=== PATIENT | female | born 2000 | race Caucasian/White ===

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

== ENCOUNTER 2022-08-09 08:55 | Day surgery (SDC) | payer OTHER, SELFPAY ==
[2022-08-08 13:43] VITALS: BMI 19.7
[2022-08-09] VITALS (11 sets, daily range): BP systolic 102–134; BP diastolic 31–82; PULSE 65–115; RESP 16–18; TEMP 36.1–37.2; O2SAT 95–100
[2022-08-09] MEDS: CELEcoxib 200 mg Capsule 400 MG PO (09:27)
[2022-08-09] MEDS: gabapentin 300 mg Capsule PO (09:28)
[2022-08-09] MEDS: acetaminophen 1,000 MG/100 ML PIGGYBACK 400 MG IV (09:32)
[2022-08-09] MEDS: sodium chloride 0.9% 1,000 ML 30 ML IV (09:34)
[2022-08-09 09:37] LABS: OR HCG Qualitative Urine Negative (Negative)
--- NOTE | 2022-08-09 10:33 | W.PM.OPSUD ---
Surgery/Procedure H&P Update DATE OF PROCEDURE: August 09, 2022 DATE H&P PERFORMED: 08/05/22 H&P UPDATE INFORMATION: I have reviewed H&P completed within last 30 days, I have examined patient prior to procedure and No changes to prior documentation PREOP DIAGNOSIS: AUB, Dysmenorrhea PLANNED PROCEDURE: Operation Date: 08/09/22 10:35 Proposed Procedures p [Hysteroscopy, dilation and curettage with Myosure [id number]], N93.9(Not Applicable) - Farrah Long MD Related Problem List Diagnoses (1) Abnormal uterine bleeding (AUB): (2) Dysmenorrhea:
[2022-08-09] MEDS: ceFAZolin 2,000 MG in sodium chloride 0.9% (plus) 50 ML 100 MG IV (10:54)
--- NOTE | 2022-08-09 11:44 | P.OP_ITS ---
Operative Report Date of procedure: August 09, 2022 Pre-op diagnosis: Preop Diagnosis AUB, Dysmenorrhea Post-op diagnosis: same Post-op findings: 9 week sized uterus. Procedure done: hysteroscopy, dilation and curettage with myosure Specimens removed/disposition: endometrial curettings to pathology Surgeon: Farrah Long Anesthesia: General Estimated blood loss (mL): 2 IV fluids (mL): 800 Complications: none Findings: hysteroscopy deficit 1120 ml Condition: stable Disposition: PACU Procedure: The patient was taken to the operating room where monitored anesthesia was administered and to be adequate. She was prepped and draped in the normal sterile fashion in the dorsal lithotomy position in [facility]. A weighted speculum was placed into the vagina and the anterior lip of the cervix grasped with a single-tooth tenaculum. The uterus was sounded to 9 cm. The cervix was dilated to 16 [place]. The hysteroscope was advanced into the endometrial cavity. There was excessive tissue on the anterior possible fibroid visualized. The MyoSure device was activated and the tissue was removed. Pictures were taken pre and post procedure. All instruments were removed. The patient tolerated the procedure well. Sponge lap and needle counts were correct x3. She was taken to the recovery room in stable condition.
--- NOTE | 2022-08-09 11:48 | PM.DCS ---
Discharge Providers Date of Admission: 08/09/22 Date of Discharge: August 09, 2022 Attending Provider at Discharge: Farrah Long MD Primary Care Provider: Iman Hull DO Diagnoses at Discharge Discharge Diagnosis (1) Abnormal uterine bleeding (AUB): Status: Acute (2) Dysmenorrhea: Status: Acute Reason for Visit Reason for Visit: N93.9 Hospital Course Hospital Course The patient was admitted for surgery. she did well postoperatively and was ready for discharge Discharge Data Studies Completed and Pending Pending at discharge Category Date Time Status Pathology: Surgical [PTH] Routine Pth 08/09/22 11:42 Ordered Laboratory Results Urine HCG, Qual Negative (Negative) 08/09/22 09:07 Vitals Last Vital Signs Temp 98.9 F 08/09/22 09:15 Pulse 103 H 08/09/22 09:15 Resp 16 08/09/22 09:15 BP 116/82 08/09/22 09:15 Pulse Ox 100 08/09/22 09:15 O2 Del Method Room Air 08/09/22 09:15 Discharge Plan Discharge Patient Disposition: Home Condition: Stable Prescriptions: Continued loratadine [Claritin] 10 mg tablet 10 mg PO DAILY levonorgestrel-ethinyl estrad [Aviane] 0.1-20 mg-mcg tablet 1 tab PO DAILY Qty: 28 12RF Discharge Orders: Discharge Order (Routine); Ordered 08/09/22 Ordered By: Farrah Long Discharge Attestations Time Spent in Discharge Care*: less than 30 min Quality Metrics Clinical Quality Measures [ No reported AMI, CVA or VTE this stay] Coding Level of Care Code Acute Code for Chg Fwd Diagnoses Abnormal uterine bleeding (AUB) N93.9 Dysmenorrhea N94.6
[2022-08-09] MEDS: ondansetron 2 mg/ML SDV 2 mL 4 MG IVP (12:40)
--- NOTE | 2022-08-09 12:52 | ANES.PREANE2 ---
Pre-Anesthetic Assessment Height/Weight: Height 1.63 m Weight 52.163 kg Temp Pulse Resp BP Pulse Ox O2 Del Method 97.4 F L 67 16 110/71 99 Room Air 08/09/22 12:25 08/09/22 12:50 08/09/22 12:50 08/09/22 12:50 08/09/22 12:50 08/09/22 12:50 Preop Diagnosis: AUB, Dysmenorrhea Operation Date: 08/09/22 10:35 Proposed Procedures p [Hysteroscopy, dilation and curettage with Myosure [id number]], N93.9(Not Applicable) - Farrah Long MD Familial anesthetic complications: none Was Beta Fay taken within 24 hours: N/A Was Clonidine taken within 24 hours: N/A Last intake: Intake Last Liquid Date 08/08/22 Last Liquid Time 22:00 Last Solid Date 08/08/22 Last Solid Time 20:00 Social No alcohol and No tobacco Exam alert, oriented x 3, clear to auscultation bilaterally and regular rate & rhythm Airway Submandibular: within normal limits Cervical ROM: within normal limits Mallampati: Class I Dentition: full History/ROS No significant history except as noted Anesthetic Plan ASA status: 1 Anesthesia: General Medications/Allergies Home Medications Medication Instructions Recorded Confirmed Last Taken Type loratadine 10 mg tablet (Claritin) 10 mg PO DAILY 08/03/21 08/08/22 08/08/22 History levonorgestrel-ethinyl estradiol 1 tab PO DAILY #28 tabs 02/24/22 08/08/22 08/08/22 Rx 0.1 mg-20 mcg tablet (Aviane) Allergies Allergy/AdvReac Type Severity Reaction Status Date / Time No Known Allergies Allergy Verified 08/05/22 08:15 Current Medications Generic Name Dose Route Start Last Admin Trade Name Freq PRN Reason Stop Dose Admin Sodium Chloride 1,000 mls @ 30 mls/hr 08/09/22 09:15 08/09/22 09:34 Sodium Chloride 0.9% IV 08/10/22 09:14 30 mls/hr .Q24H LISSETT Administration PFSH Anesthesia Medical History Encounter for outpatient evaluation and management for new patient No pertinent past medical history Denies diabetes, asthma, hypertension, seizures, DVT/PE PCP: Dr. Hull Surgical History H/O hernia repair Bilateral inguinal hernia - at 1 mo of age--patient does not know if mesh was used. [place] teeth extracted (~07/2021) Family History Mother Hypertension Neuro-endocrine carcinoma Father No problems noted. Grandfather No problems noted. Grandmother Breast cancer paternal, diagnosed in her 60s Denies family history of Colon cancer Ovarian cancer Diabetes Heart disease Hyperlipidemia Uterine cancer Thyroid condition Stroke Social History Substance/Drug Use: never Agree to transfusion: Yes Data Anesthesia Cardiac Studies: No Data to Display
--- NOTE | 2022-08-09 17:44 | ANE.PACU2 ---
Inpatient post-anesthesia follow up: Airway intact: Yes Vital signs: Temperature 97.4 F Pulse Rate 67 Respiratory Rate 16 Blood Pressure 110/71 Pulse Oximetry 99 Oxygen Delivery Me thod Room Air Oxygen Flow Rate Fraction of Inspir ed Oxygen Hydration adequate: Yes Nausea and vomiting: Yes Pain level: 2 Mental status: Baseline
== END 2022-08-09 13:00 | disposition home or self-care (01) ==
PROVIDERS: Anesthesiology; PCP Family Medicine; Visit Provider Obstetrics & Gynecology
PROC: 0UDB8ZZ Extraction of Endometrium, Via Natural or Artificial Opening Endoscopic (ICD-10-PCS; CPT 58558; principal; 2022-08-09 10:25)
DX: N93.8 Other specified abnormal uterine and vaginal bleeding (principal); N94.6 Dysmenorrhea, unspecified
CPT/HCPCS: 58558; 84703; 88305; J0131; J0690; J1100; J2405; J2704; J2710; J3010; J3490; J7030

== ENCOUNTER → 2023-01-10 15:08 | Outpatient (BNVA) | payer OTHER, SELFPAY | PROVIDERS: PCP Family Medicine; Visit Provider Family Medicine | DX: R00.2 Palpitations (principal); D50.9 Iron deficiency anemia, unspecified | CPT/HCPCS: 82728; 83550; 84443; 85025 ==